=== PATIENT | male | born 1960 | race Caucasian/White ===

== ENCOUNTER 2020-11-30 16:41 | Emergency (ER) | payer BC ==
[2020-11-30] MEDS ORDERED: Lidocaine 1% 10 ML MDV INJECT ONE (17:20)
[2020-11-30] MEDS ORDERED: Diphtheria,Pertussis(Acell),Tetanus Vaccine 0.5 ML Syringe IM ONE (17:51)
[2020-11-30] MEDS ORDERED: Cephalexin 500 MG Cap PO ONE (18:28)
--- NOTE | 2020-11-30 18:36 | EDM.PDOC ---
ED HPI GENERAL MEDICAL PROBLEM - General Chief Complaint: Laceration Stated Complaint: RT HAND LAC Time Seen by Provider: 11/30/20 17:14 Source of Information: Reports: Patient, RN Notes Reviewed History Limitations: Reports: No Limitations - History of Present Illness INITIAL COMMENTS - FREE TEXT/NARRATIVE: Patient is a 60-year-old male presenting to the emergency department with complaints of laceration to the proximal right fifth finger on the volar aspect. Reports that he was tightening some bolts on their swath or when his son pulled out the sickle blade, causing laceration. He is unsure when his last tetanus vaccination was. Right Finger-Little Pain Score (Numeric/FACES): 6 - Related Data Allergies Allergy/AdvReac Type Severity Reaction Status Date / Time Iodinated Contrast Media Allergy Hives Verified 11/30/20 17:25 Home Meds: Home Meds cephALEXin [Cephalexin] 500 mg PO Q6H 7 Days #27 tablet 11/30/20 [Rx] Past Medical History Cardiovascular History: Reports: High Cholesterol, Hypertension Musculoskeletal History: Reports: Back Pain, Chronic - Past Surgical History Cardiovascular Surgical History: Reports: Coronary Artery Stent Social & Family History - Tobacco Use Tobacco Use Status *Q: Never Tobacco User - Caffeine Use Caffeine Use: Reports: None - Recreational Drug Use Recreational Drug Use: No ED ROS GENERAL - Review of Systems Review Of Systems: Comprehensive ROS is negative, except as noted in HPI. ED EXAM, SKIN/RASH Exam: See Below Exam Limited By: No Limitations General Appearance: Alert, WD/WN, No Apparent Distress Respiratory/Chest: No Respiratory Distress, Lungs Clear, Normal Breath Sounds, No Accessory Muscle Use, Chest Non-Tender Cardiovascular: Normal Peripheral Pulses, Regular Rate, Rhythm, No Edema, No Gallop, No JVD, No Murmur, No Rub Extremities: Other (3.5 cm gaping laceration overlying the volar aspect MCP joint of the right fifth finger. Tendon sheath visible. Full range of motion and strength to flexion, extension, and abduction.) Neurological: Alert, Oriented, CN II-XII Intact, Normal Cognition, Normal Gait, Normal Reflexes, No Motor/Sensory Deficits Psychiatric: Normal Affect, Normal Mood ED SKIN PROCEDURES - Laceration/Wound Repair Right Proximal Ventral Digit - 5th (Baby) Appearance: Subcutaneous, Mildly Contaminated Distal NVT: Neuro & Vascular Intact, No Tendon Injury Anesthetic Type: Local Local Anesthesia - Lidocaine (Xylocaine): 1% Plain Local Anesthetic Volume: 4cc Skin Prep: Chlorhexidine (Hibiciens), Providone-Iodine (Betadine), Saline Saline Irrigation (cc's): 200 Exploration/Debridement/Repair: Wound Explored, In a Bloodless Field, Explored to Base, No Foreign Material Found Closed with: Sutures Lac/Wound length In cm: 3 Suture Size: 4-0 # of Sutures: 8 Suture Type: Nylon Sterile Dressing Applied: Nurse Tetanus Status Addressed: Yes Complications: No Course - Vital Signs Last Recorded V/S: Last Vital Signs Temp 97.2 F 11/30/20 18:48 Pulse 70 11/30/20 18:48 Resp 16 11/30/20 18:48 BP 137/85 11/30/20 18:48 Pulse Ox 95 11/30/20 18:48 - Orders/Labs/Meds Meds: Medications Discontinued Medications Generic Name Dose Route Start Last Admin Trade Name Freq PRN Reason Stop Dose Admin Cephalexin 500 mg 11/30/20 18:28 11/30/20 18:47 Cephalexin 500 Mg Cap PO 11/30/20 18:29 500 mg ONETIME ONE Administration Diphtheria/Tetanus/Acell Pertussis 0.5 ml 11/30/20 17:51 11/30/20 18:08 Diphtheria,Pertussis(Acell),Tetanus Vaccine 0.5 Ml Syringe IM 11/30/20 17:52 0.5 ml .ONCE ONE Administration Lidocaine HCl 10 ml 11/30/20 17:20 11/30/20 18:00 Lidocaine 1% 10 Ml Mdv INJECT 11/30/20 17:21 10 ml ONETIME ONE Administration - Re-Assessments/Exams Free Text/Narrative Re-Assessment/Exam: Patient is a 60-year-old male presenting to the emergency department with complaints of laceration to the volar aspect of his right fifth finger. On exam, there is a 3.5 cm gaping laceration overlying the volar aspect of the MCP joint of the right fifth finger. After exploration, tendon sheath is visible and appears to be completely intact. Patient has full range of motion and strength to flexion, extension, and abduction. Patient confirms that his function is normal. See procedure notes for closure. X-ray was completed and show no evidence of fracture or damage to the bone, however given the extent of the laceration and that the tendon sheath is visible, he will be placed on Keflex for antibiotic prophylaxis. Tdap was also updated today. Discharge instructions as documented. Departure - Departure Time of Disposition: 18:38 Disposition: Home, Self-Care 01 Condition: Good Clinical Impression: Laceration - Discharge Information *PRESCRIPTION DRUG MONITORING PROGRAM REVIEWED*: No *COPY OF PRESCRIPTION DRUG MONITORING REPORT IN PATIENT [place]: No Prescriptions: cephALEXin [Cephalexin] 500 mg PO Q6H 7 Days #27 tablet Instructions: Laceration Care, Adult Referrals: PCP,Not In Area [Primary Care Provider] - Forms: ED Department Discharge Additional Instructions: You were seen in the emergency department today for a laceration to your right fifth finger. The wound was cleansed and closed with 8 sutures. These should stay intact for 10 days. After that time they may be removed in the clinic by a nurse. Keep the wound clean and dry. Wash with normal soap and water twice daily. Do not submerge the wound in water. You have been started on cephalexin for infection prevention. Take this as prescribed. First dose was given in the emergency department. Watch for signs of infection including increased redness, swelling, or purulent drainage. If these should occur, you should be seen either in the clinic or in the emergency department as antibiotic treatment may be needed. Return to the ER as needed. Sepsis Event Note (ED) - Evaluation Sepsis Screening Result: No Definite Risk
--- NOTE | 2020-11-30 18:54 | CR ---
Right fifth finger: 4 views centered to the right fifth finger were obtained. Comparison: No previous study. Joint space narrowing is noted scattered within the MCP joints. Joint space narrowing is also scattered within the DIP joints. Soft tissue injury is seen at the base of the right fifth finger. No radiopaque foreign object is seen. No acute fracture or other bony abnormality is appreciated. Impression: 1. Soft tissue injury. 2. Mild degenerative change. 3. No other acute abnormality is appreciated. Diagnostic code #3
== END 2020-11-30 19:00 | disposition home or self-care (01) ==
LOC: JD.ED 16:41
DX: S61.216A Laceration without foreign body of right little finger without damage to nail, initial encounter (principal); E78.00 Pure hypercholesterolemia, unspecified; I10 Essential (primary) hypertension; Z91.041 Radiographic dye allergy status; Z95.5 Presence of coronary angioplasty implant and graft; Z23 Encounter for immunization; W26.8XXA Contact with other sharp object(s), not elsewhere classified, initial encounter
CPT/HCPCS: 12002; 73140; 90471; 90715; 99283; A9270; 99282

== ENCOUNTER 2022-10-23 13:36 | Emergency (ER) | payer BC ==
[2022-10-23] MEDS ORDERED: Sodium Chloride 0.9% 10 ML Syringe FLUSH PRN (13:56)
[2022-10-23] MEDS ORDERED: Sodium Chloride 0.9% 1,000 ML IV ONE (14:01)
[2022-10-23] MEDS ORDERED: Ketorolac 15 MG/ML SDV IVPUSH ONE (14:03)
[2022-10-23 14:46] LABS: BASOPHILS ABSOLUTE AUTO 0.06 K/mm3 (0.01-0.08); BASOPHILS PERCENT AUTO 0.7 % (0.1-1.2); EOSINOPHILS ABSOLUTE AUTO 0.16 K/mm3 (0.04-0.54); EOSINOPHILS PERCENT AUTO 1.8 (0.8-7.0); HEMATOCRIT 43.6 % (40.1-51.0); HEMOGLOBIN 14.4 gm/dl (13.7-17.5); IMMATURE GRAN ABSOLUTE AUTO 0.02 K/mm3 (0.00-0.10); IMMATURE GRAN PERCENT AUTO 0.2 % (<=1.0); LYMPHOCYTES ABSOLUTE AUTO 1.81 K/mm3 (1.32-3.57); LYMPHOCYTES PERCENT AUTO 20.2 % (21.8-53.1); MEAN CORPUSCULAR HEMOGLOBIN 28.7 pg (25.7-32.2); MEAN PLATELET VOLUME 9.8 fl (9.4-12.3); MONOCYTES ABSOLUTE AUTO 0.97 K/mm3 (0.30-0.82); MONOCYTES PERCENT AUTO 10.8 % (5.3-12.2); NEUTROPHILS ABSOLUTE AUTO 5.95 K/mm3 (1.78-5.38); NEUTROPHILS PERCENT AUTO 66.3 % (34.0-67.9); PLATELET COUNT,PLT 206 K/mm3 (163-337); RED BLOOD CELL COUNT 5.01 M/mm3 (4.63-6.08); WHITE BLOOD CELL COUNT,WBC 8.97 K/mm3 (4.23-9.07)
[2022-10-23 14:58] LABS: INR 0.97; PROTHROMBIN TIME 10.4 SECONDS (9.7-12.0)
[2022-10-23 15:05] LABS: ALBUMIN 3.8 g/dl (3.4-5.0); BILIRUBIN TOTAL 0.5 mg/dL (0.2-1.0); CALCIUM 9.4 mg/dL (8.5-10.1); CREATININE 1.5 mg/dL (0.7-1.3); EST CRCL DRUG DOSING (CG) 56.76 mL/min; PROTEIN TOTAL,TP 7.8 g/dl (6.4-8.2)
[2022-10-23 17:34] LABS: APPEARANCE,URINE CLEAR (Clear); BILIRUBIN,URINE NEGATIVE (Negative); COLOR,URINE YELLOW (Yellow); GLUCOSE,URINE NEGATIVE (Negative); KETONES,URINE NEGATIVE (Negative); LEUKOCYTE ESTERASE,URINE NEGATIVE (Negative); NITRITE,URINE NEGATIVE (Negative); OCCULT BLOOD,URINE 1+ (Negative); PH,URINE 5.5 (5.0-8.0); PROTEIN,URINE NEGATIVE (Negative); UROBILINOGEN,URINE 0.2 (0.2-1.0)
[2022-10-23 18:20] LABS: BACTERIA,URINE FEW /hpf (FEW); FINE GRANULAR CASTS,URINE 0-5 /lpf (0-5); MUCUS,URINE MANY /hpf (FEW); SQUAMOUS EPITHELIAL CELLS,UR 0-5 /hpf (0-5); WBC,URINE 0-5 /hpf (0-5)
[2022-10-23 18:23] LABS: CALCIUM OXALATE CRYSTALS,URINE RARE
== END 2022-10-23 18:35 | disposition home or self-care (01) ==
LOC: JD.ED 13:36
DX: R10.9 Unspecified abdominal pain (principal)
CPT/HCPCS: 36415; 71045; 74176; 80053; 81001; 84484; 85025; 85610; 85730; 93005; 96361; 96374; 99284; J1885; J3490; J7030; 93010